=== PATIENT | female | born 1955 | race Caucasian/White ===

== ENCOUNTER 2016-12-03 22:03 | Emergency (ER) | payer MEDICAID ==
[~2016-12-03] VITALS: Ht 162.6 cm; Wt 49.9 kg
[2016-12-03 22:30] VITALS: BP 109/68
== END 2016-12-04 02:59 | disposition left against medical advice (07) ==
LOC: ER 22:06
DX: M79.89 Other specified soft tissue disorders (principal); Z53.21 Procedure and treatment not carried out due to patient leaving prior to being seen by health care provider

== ENCOUNTER 2016-12-31 09:12 | Inpatient (IN) | payer MEDICAID ==
[~2016-12-31] VITALS: Ht 167.6 cm; Wt 63.8 kg
[2016-12-31] VITALS (7 sets, daily range): BP systolic 98–129; BP diastolic 71–86
[2016-12-31] MEDS ORDERED: SODIUM CHLORIDE 0.9% 1,000 ML IVB ONE (11:02)
[2016-12-31] MEDS ORDERED: DILTIAZEM HCL 25 MG/5 ML VIAL IV ONE (11:15)
[2016-12-31] MEDS ORDERED: HYDROmorphone HCL 2 MG/ML VL IV ONE (11:15)
[2016-12-31] MEDS ORDERED: PROMETHAZINE HCL 25 MG/ML 1ML IV ONE (11:15)
[2016-12-31 11:50] LABS: Basophils # (auto) 0 uL; Basophils % (auto) 0.2 % (0.0-2.0); DEFINITIVE VIEW TRANSMISSION; Eosinophils # (auto) 0.1 uL; Eosinophils % (auto) 1.1 % (0.0-7.0); Hematocrit 37.7 % (36.0-46.0); Hemoglobin 11.7 g/dL (12.2-16.2); Lymphocytes % (auto) 19.5 % (10.0-50.0); Mean Corpuscular Hemoglobin 25.8 pg (28.0-32.0); Mean Corpuscular Volume 83.3 fL (80.0-100.0); Mean Platelet Volume 8.5 fL (7.4-10.4); Monocytes # (auto) 0.9 uL; Monocytes % (auto) 8.9 % (0.0-12.0); Neutrophils # (auto) 7.3 uL; Neutrophils % (auto) 70.3 % (37.0-80.0); Platelet Count (auto) 392 10^3/uL (140-450); Red Cell Distribution Width 18.2 % (11.6-16.0); White Blood Cell 10.4 10^3/uL (4.4-10.8)
[2016-12-31 12:11] LABS: INR 1.72 (0.9-1.15); Prothrombin Time 17.7 sec (9.37-12.3)
[2016-12-31 12:22] LABS: Lactic Acid 2.4 mmol/L (0.4-2.0)
[2016-12-31 12:26] LABS: Albumin 2.9 g/dL (3.4-5.0); BUN/Creatinine Ratio 19.1; Bilirubin, Total 0.9 mg/dL (0.2-1.0); Calcium 8.9 mg/dL (8.5-10.1); Magnesium 2.4 mg/dL (1.6-2.6); Potassium 4.5 mmol/L (3.5-5.1); Total Protein 7.1 g/dL (6.4-8.2)
[2016-12-31 12:31] LABS: REFLEX LACTIC ACID YES OR NO YES
[2016-12-31] MEDS ORDERED: MORPHINE SULF INJ 2 MG/ML SYRINGE 1ML IV PRN (14:00)
[2016-12-31] MEDS ORDERED: NITROGLYCERIN 0.4 MG SL TAB SL PRN (14:00)
[2016-12-31] MEDS ORDERED: TEMAZEPAM 15 MG CAP PO PRN (14:00)
[2016-12-31] MEDS ORDERED: ACETAMINOPHEN 500 MG TAB PO PRN (14:00)
[2016-12-31] MEDS ORDERED: CARVEDILOL 3.125 MG TAB PO ONE (14:15)
[2016-12-31] MEDS ORDERED: IOHEXOL 300 MG/ML 100ML BOTTLE IJ ONE (14:18)
[2016-12-31] MEDS ORDERED: MET50T (15:49)
[2016-12-31] MEDS ORDERED: WARF4TAB33 (15:49)
[2016-12-31] MEDS ORDERED: FURO40TA4 (15:49)
[2016-12-31] MEDS ORDERED: ALBU18 (15:49)
[2016-12-31] MEDS ORDERED: LANS30CA63 (15:49)
[2016-12-31] MEDS ORDERED: MET25T (15:49)
[2016-12-31] MEDS ORDERED: DILT30TA24 (15:49)
[2016-12-31] MEDS ORDERED: BECL80AE9 (15:49)
[2016-12-31] MEDS ORDERED: DIGO0.1262 (15:49)
[2016-12-31] MEDS ORDERED: LOR05T (15:49)
[2016-12-31] MEDS ORDERED: METH10TA6 (15:49)
[2016-12-31] MEDS ORDERED: FUR20T (15:49)
[2016-12-31] MEDS ORDERED: MORP15TA43 (15:49)
[2016-12-31] MEDS: PROMETHAZINE HCL 25 MG/ML 1ML IV PRN (16:20)
[2016-12-31] MEDS ORDERED: DILTIAZEM 125mg/125ml BAG KIT 125 ML IV SCH (17:00)
[2016-12-31] MEDS ORDERED: DIGOXIN (250MCG/ML) 2 ML AMPULE IV ONE (17:30)
[2016-12-31] MEDS ORDERED: CARVEDILOL 3.125 MG TAB PO SCH (22:00)
[2017-01-01] VITALS (13 sets, daily range): BP systolic 103–126; BP diastolic 58–76
[2017-01-01] MEDS: MORPHINE SULF INJ 2 MG/ML SYRINGE 1ML IV PRN ×3 (03:23→23:32)
[2017-01-01 05:25] LABS: Basophils # (auto) 0 uL; Basophils % (auto) 0.3 % (0.0-2.0); DEFINITIVE VIEW TRANSMISSION; Eosinophils # (auto) 0.1 uL; Hematocrit 33.2 % (36.0-46.0); Hemoglobin 10.5 g/dL (12.2-16.2); Lymphocytes # (auto) 1.6 uL; Lymphocytes % (auto) 18.5 % (10.0-50.0); Mean Corpuscular Hemoglobin 25.8 pg (28.0-32.0); Mean Corpuscular Hgb Conc. 31.5 g/dL (32.0-36.0); Mean Corpuscular Volume 81.8 fL (80.0-100.0); Mean Platelet Volume 8.1 fL (7.4-10.4); Monocytes # (auto) 0.8 uL; Monocytes % (auto) 8.9 % (0.0-12.0); Neutrophils # (auto) 6.1 uL; Neutrophils % (auto) 71.3 % (37.0-80.0); Platelet Count (auto) 344 10^3/uL (140-450); Red Cell Distribution Width 18.2 % (11.6-16.0); White Blood Cell 8.5 10^3/uL (4.4-10.8)
[2017-01-01 05:40] LABS: Partial Thromboplastin Time 30.6 sec (22.64-33.71)
[2017-01-01 05:49] LABS: Albumin 2.6 g/dL (3.4-5.0); BUN/Creatinine Ratio 28.2; Bilirubin, Total 1.3 mg/dL (0.2-1.0); Calcium 8.6 mg/dL (8.5-10.1); Potassium 4.3 mmol/L (3.5-5.1); Total Protein 6.1 g/dL (6.4-8.2)
[2017-01-01 05:57] LABS: INR 1.93 (0.9-1.15); Prothrombin Time 19.9 sec (9.37-12.3)
[2017-01-01] MEDS: DILTIAZEM HCL 180MG ER CAP PO SCH (10:00)
[2017-01-01] MEDS: METOPROLOL TARTRATE 25 MG TAB PO SCH ×2 (10:00→21:54)
[2017-01-01] MEDS: PROMETHAZINE HCL 25 MG/ML 1ML IV PRN ×2 (13:13→21:54)
[2017-01-01] MEDS: RIVAROXABAN 20 MG TAB PO SCH (18:18)
[2017-01-02] VITALS: BP 93/65
[2017-01-02 04:00] VITALS: BP 100/75
[2017-01-02 08:00] VITALS: BP 115/85
[2017-01-02] MEDS: DILTIAZEM HCL 180MG ER CAP PO SCH (10:47)
[2017-01-02] MEDS: METOPROLOL TARTRATE 25 MG TAB PO SCH ×2 (10:48→22:00)
[2017-01-02] MEDS: HYDROcodone-ACET 5/325MG TAB PO PRN (10:48)
[2017-01-02 12:00] VITALS: BP 104/76
[2017-01-02 16:00] VITALS: BP 101/67
[2017-01-02] MEDS: MORPHINE SULF INJ 2 MG/ML SYRINGE 1ML IV PRN ×2 (16:20→23:10)
[2017-01-02] MEDS: PROMETHAZINE HCL 25 MG/ML 1ML IV PRN ×2 (16:20→23:11)
[2017-01-02] MEDS: RIVAROXABAN 20 MG TAB PO SCH (18:00)
[2017-01-02 20:00] VITALS: BP 108/75
[2017-01-03] VITALS: BP 101/74
[2017-01-03 04:00] VITALS: BP 115/74
[2017-01-03 06:01] LABS: Basophils # (auto) 0 uL; DEFINITIVE VIEW TRANSMISSION; Eosinophils # (auto) 0.1 uL; Eosinophils % (auto) 1.3 % (0.0-7.0); Hematocrit 37.4 % (36.0-46.0); Hemoglobin 11.7 g/dL (12.2-16.2); Lymphocytes # (auto) 2.1 uL; Mean Corpuscular Hemoglobin 26.1 pg (28.0-32.0); Mean Corpuscular Hgb Conc. 31.3 g/dL (32.0-36.0); Mean Corpuscular Volume 83.6 fL (80.0-100.0); Mean Platelet Volume 9.2 fL (7.4-10.4); Monocytes # (auto) 1.2 uL; Monocytes % (auto) 12.2 % (0.0-12.0); Neutrophils # (auto) 6.1 uL; Neutrophils % (auto) 64.5 % (37.0-80.0); Platelet Count (auto) 353 10^3/uL (140-450); Red Cell Distribution Width 18.3 % (11.6-16.0); White Blood Cell 9.5 10^3/uL (4.4-10.8)
[2017-01-03 06:11] LABS: Albumin 2.8 g/dL (3.4-5.0); BUN/Creatinine Ratio 20.5; Calcium 8.2 mg/dL (8.5-10.1); Potassium 4.6 mmol/L (3.5-5.1)
[2017-01-03 06:14] LABS: Bilirubin, Total 0.9 mg/dL (0.2-1.0); Total Protein 6.6 g/dL (6.4-8.2)
[2017-01-03 08:00] VITALS: BP 122/78
[2017-01-03] MEDS: METOPROLOL TARTRATE 25 MG TAB PO SCH ×3 (10:04→22:49)
[2017-01-03] MEDS: DILTIAZEM HCL 180MG ER CAP PO SCH (10:04)
[2017-01-03 12:02] VITALS: BP 103/65
[2017-01-03] MEDS: PROMETHAZINE HCL 25 MG/ML 1ML IV PRN ×2 (15:11→21:57)
[2017-01-03 15:49] VITALS: BP 111/72
[2017-01-03] MEDS: RIVAROXABAN 20 MG TAB PO SCH (18:05)
[2017-01-03] MEDS: MORPHINE SULF INJ 2 MG/ML SYRINGE 1ML IV PRN ×2 (18:56→22:51)
[2017-01-03 20:00] VITALS: BP 113/73
[2017-01-04] MEDS: PROMETHAZINE HCL 25 MG/ML 1ML IV PRN (02:10)
[2017-01-04 03:39] VITALS: BP 103/76
[2017-01-04 04:00] VITALS: BP 116/77
[2017-01-04] MEDS: MORPHINE SULF INJ 2 MG/ML SYRINGE 1ML IV PRN ×2 (06:36→14:38)
[2017-01-04] MEDS: DILTIAZEM HCL 180MG ER CAP PO SCH (11:03)
[2017-01-04 11:25] VITALS: BP 116/79
[2017-01-04 12:00] VITALS: BP 86/59
[2017-01-04 16:00] VITALS: BP 131/92
[2017-01-04] MEDS: RIVAROXABAN 20 MG TAB PO SCH (18:25)
[2017-01-04] MEDS: LORazepam 0.5 MG TAB PO PRN (19:43)
[2017-01-04 20:00] VITALS: BP 126/65
[2017-01-05] VITALS (7 sets, daily range): BP systolic 91–142; BP diastolic 54–73
[2017-01-05] MEDS: MORPHINE SULF INJ 2 MG/ML SYRINGE 1ML IV PRN ×2 (09:00→14:04)
[2017-01-05] MEDS: METOPROLOL TARTRATE 25 MG TAB PO SCH ×2 (09:47→21:54)
[2017-01-05] MEDS: DILTIAZEM HCL 180MG ER CAP PO SCH (09:48)
[2017-01-05] MEDS: PROMETHAZINE HCL 25 MG/ML 1ML IV PRN (13:58)
[2017-01-05] MEDS: RIVAROXABAN 20 MG TAB PO SCH (17:41)
[2017-01-05] MEDS: HYDROcodone-ACET 5/325MG TAB PO PRN (21:54)
[2017-01-05] MEDS: LORazepam 0.5 MG TAB PO PRN (22:42)
[2017-01-06] VITALS (7 sets, daily range): BP systolic 102–126; BP diastolic 49–76
[2017-01-06] MEDS: METOPROLOL TARTRATE 25 MG TAB PO SCH ×2 (09:44→22:23)
[2017-01-06] MEDS: DILTIAZEM HCL 180MG ER CAP PO SCH (09:44)
[2017-01-06] MEDS: LORazepam 0.5 MG TAB PO PRN (10:02)
[2017-01-06] MEDS: MORPHINE SULF INJ 2 MG/ML SYRINGE 1ML IV PRN ×2 (10:58→19:50)
[2017-01-06] MEDS: RIVAROXABAN 20 MG TAB PO SCH (23:26)
[2017-01-07] VITALS (10 sets, daily range): BP systolic 99–133; BP diastolic 72–93
[2017-01-07] MEDS: MORPHINE SULF INJ 2 MG/ML SYRINGE 1ML IV PRN ×2 (03:21→10:49)
[2017-01-07 05:59] LABS: Basophils # (auto) 0.1 uL; Basophils % (auto) 0.7 % (0.0-2.0); DEFINITIVE VIEW TRANSMISSION; Eosinophils # (auto) 0.1 uL; Eosinophils % (auto) 1.2 % (0.0-7.0); Hematocrit 35.3 % (36.0-46.0); Lymphocytes # (auto) 1.7 uL; Lymphocytes % (auto) 21.4 % (10.0-50.0); Mean Corpuscular Hemoglobin 25.6 pg (28.0-32.0); Mean Corpuscular Hgb Conc. 31.1 g/dL (32.0-36.0); Mean Corpuscular Volume 82.1 fL (80.0-100.0); Mean Platelet Volume 8.4 fL (7.4-10.4); Monocytes # (auto) 0.8 uL; Monocytes % (auto) 10.4 % (0.0-12.0); Neutrophils # (auto) 5.1 uL; Neutrophils % (auto) 66.3 % (37.0-80.0); Platelet Count (auto) 312 10^3/uL (140-450); Red Cell Distribution Width 18.1 % (11.6-16.0); White Blood Cell 7.7 10^3/uL (4.4-10.8)
[2017-01-07 06:28] LABS: Albumin 2.6 g/dL (3.4-5.0); BUN/Creatinine Ratio 16.4; Bilirubin, Total 0.6 mg/dL (0.2-1.0); Calcium 8.4 mg/dL (8.5-10.1); Magnesium 2.3 mg/dL (1.6-2.6); Potassium 4.9 mmol/L (3.5-5.1); Total Protein 6.2 g/dL (6.4-8.2)
[2017-01-07] MEDS: ALBUTEROL SULF 2.5 MG/0.5ML(0.5%) NEB SOLN NEB PRN ×2 (08:55→18:41)
[2017-01-07] MEDS: DILTIAZEM HCL 180MG ER CAP PO SCH (10:48)
[2017-01-07] MEDS: METOPROLOL TARTRATE 25 MG TAB PO SCH ×3 (10:48→22:00)
[2017-01-07] MEDS: LORazepam 0.5 MG TAB PO PRN ×2 (17:19→17:20)
[2017-01-07] MEDS: RIVAROXABAN 20 MG TAB PO SCH (18:28)
[2017-01-08] MEDS: LORazepam 0.5 MG TAB PO PRN (04:43)
[2017-01-08 04:53] VITALS: BP 122/87
[2017-01-08] MEDS ORDERED: VERAPAMIL 2.5MG/ML INJ 2ML VIAL IV ONE ×2 (05:39→05:45)
[2017-01-08 08:00] VITALS: BP 125/76
[2017-01-08 08:38] VITALS: BP 116/66
[2017-01-08] MEDS: MORPHINE SULF INJ 2 MG/ML SYRINGE 1ML IV PRN (08:40)
[2017-01-08] MEDS: DILTIAZEM HCL 180MG ER CAP PO SCH (10:38)
[2017-01-08] MEDS: METOPROLOL TARTRATE 25 MG TAB PO SCH (10:39)
[2017-01-08 12:58] VITALS: BP 116/86
== END 2017-01-08 14:15 | disposition home or self-care (01) ==
LOC: EDBD 09:12 → ER 09:14 → DOU IN ICU 09:15 → TELE-WESTW 01-06 22:55
PROVIDERS: ADMIT Internal Medicine; ATTEND Internal Medicine
DX: K80.62 Calculus of gallbladder and bile duct with acute cholecystitis without obstruction (principal); J96.10 Chronic respiratory failure, unspecified whether with hypoxia or hypercapnia; D68.9 Coagulation defect, unspecified; I96 Gangrene, not elsewhere classified; I42.9 Cardiomyopathy, unspecified; R18.8 Other ascites; I48.92 Unspecified atrial flutter; I48.91 Unspecified atrial fibrillation; J44.9 Chronic obstructive pulmonary disease, unspecified; E03.9 Hypothyroidism, unspecified; E05.90 Thyrotoxicosis, unspecified without thyrotoxic crisis or storm; F41.9 Anxiety disorder, unspecified; K76.9 Liver disease, unspecified; F17.210 Nicotine dependence, cigarettes, uncomplicated; Z90.89 Acquired absence of other organs; Z84.89 Family history of other specified conditions; I51.7 Cardiomegaly; F19.10 Other psychoactive substance abuse, uncomplicated; F10.10 Alcohol abuse, uncomplicated; I50.42 Chronic combined systolic (congestive) and diastolic (congestive) heart failure; I73.9 Peripheral vascular disease, unspecified; Z71.89 Other specified counseling; Y90.9 Presence of alcohol in blood, level not specified; Z99.81 Dependence on supplemental oxygen
CPT/HCPCS: 36415; 71020; 73620; 74176; 74178; 80053; 80061; 82150; 82270; 82378; 82550; 83605; 83690; 83735; 83880; 84439; 84443; 84481; 84484; 85025; 85379; 85610; 85652; 85730; 86141; 87081; 93005; 93306; 93926; 94640; 96361; 96374; 96375

== ENCOUNTER 2023-11-30 09:39 | Inpatient (IN) | payer OTHER, MEDICAID ==
[2023-11-30] VITALS (11 sets, daily range): BP systolic 110–155; BP diastolic 45–67; PULSE 75–113; RESP 15–36; TEMP 97.5–99.1; O2SAT 94–100
[~2023-11-30] VITALS: Ht 165.1 cm; Wt 48.9 kg
[~2023-11-30 09:39] MED LIST: ALBU18; BECL80AE9; DIGO0.1262; DILT30TA; FUR20T; FURO40TA4; LANS30CA57; LORA-1121; MET25T; MET50T; METH-552; MORP1TAB12; WARF-112
[2023-11-30 10:18] LABS: Basophils # (auto) 0 10 ^3/uL (0-0.2); Basophils % (auto) 0.1 % (0.0-2.0); Eosinophils # (auto) 0.1 10 ^3/uL (0-0.8); Eosinophils % (auto) 1.3 % (0.0-7.0); Hematocrit 35.1 % (36.0-46.0); Hemoglobin 11.3 g/dL (12.2-16.2); Lymphocytes # (auto) 0.8 10 ^3/uL (0.4-5.4); Lymphocytes % (auto) 8.6 % (10.0-50.0); Mean Corpuscular Hgb Conc. 32.2 g/dL (32.0-36.0); Monocytes # (auto) 0.9 10 ^3/uL (0-1.3); Neutrophils # (auto) 7.4 10 ^3/uL (1.6-8.6); Nucleated Red Blood Cells % 0.1 %; Red Blood Cells 4.04 10^6/uL (4.0-5.20); Red Cell Distribution Width 13.1 % (11.8-14.3); White Blood Cell 9.3 10^3/uL (4.4-10.8)
[2023-11-30 10:26] LABS: Chloride 102 mmol/L (98-107); Potassium 4.9 mmol/L (3.5-5.1); Sodium 137 mmol/L (136-145)
[2023-11-30 10:27] LABS: Anion Gap 1 (5-15); Calcium 9.3 mg/dL (8.5-10.1); Carbon Dioxide 34 mmol/L (20-30)
[2023-11-30 10:32] LABS: Blood Urea Nitrogen 14 mg/dL (9-23); Glucose 116 mg/dL (74-106)
[2023-11-30 11:09] LABS: Rapid Influenza A Negative (Negative); Rapid Influenza B Negative (Negative)
[2023-11-30 11:10] LABS: COVID19 ANTIGEN SOFIA FIA NEGATIVE (NEGATIVE)
[2023-11-30] MEDS: LORazepam 2MG/ML-1ML VIAL IV ONE (11:19)
[2023-11-30] MEDS ORDERED: METH4PAK PO (12:02)
[2023-11-30] MEDS ORDERED: AZIT1POW PO (12:02)
[2023-11-30] MEDS: IPRATROPIUM BROM 0.5 MG/2.5ML INH SOL HHN ONE (12:30)
[2023-11-30] MEDS: ALBUTEROL SULF 2.5 MG/0.5ML(0.5%) NEB SOLN HHN ONE (12:30)
[2023-11-30] MEDS ORDERED: ACETAMINOPHEN 325 MG TAB PO PRN (13:00)
[2023-11-30] MEDS ORDERED: DOCUSATE SOD 100 MG CAP PO PRN (13:00)
[2023-11-30] MEDS ORDERED: MORPHINE SULFATE INJ 2 MG/ml SYRG IV PRN (13:00)
[2023-11-30] MEDS ORDERED: NITROGLYCERIN 0.4 MG SL TAB SL PRN (13:00)
[2023-11-30] MEDS ORDERED: ONDANSETRON HCL 4 MG/2 ML VIAL IV PRN (13:00)
[2023-11-30] MEDS: IOHEXOL 350 MG/ML 100ML IJ ONE (13:16)
[2023-11-30] MEDS: IPRATROPIUM BROM 0.5 MG/2.5ML INH SOL ONE (13:37)
[2023-11-30] MEDS: ALBUTEROL SULF 2.5 MG/0.5ML(0.5%) NEB SOLN ONE (13:38)
[2023-11-30 13:46] LABS: Base Excess 4.7 mmol/L (-2.0-2.0)
[2023-11-30] MEDS: METOPROLOL TARTRATE 25 MG TAB PO ONE (13:51)
[2023-11-30] MEDS: SODIUM CHLORIDE 0.9% 1,000 ML IV ONE (13:51)
[2023-11-30] MEDS: methylPREDNISolone SOD SUCC 125 MG/2 ML VL IV ONE (13:51)
[2023-11-30] MEDS: methylPREDNISolone SOD SUCC 40 MG/ML VL IV SCH (13:57)
[2023-11-30 14:54] LABS: Urine Epithelial Cast None Seen /hpf (<5)
[2023-11-30 15:07] LABS: Urine Bacteria FEW /hpf (None Seen); Urine Blood Negative /uL (Negative); Urine Clarity Clear (Clear); Urine Color Colorless (Yellow); Urine Protein, UAD TRACE (Negative); Urine Urobilinogen Normal (Negative); Urine WBC <1 /hpf (0 - 5)
[2023-11-30 15:08] LABS: Urine Specific Gravity > 1.050 (1.001-1.035)
[2023-11-30 15:22] LABS: Amphetamine Screen, Urine Pos (NEGATIVE); Barbiturate Scree,Urine Neg (NEGATIVE); Benzodiazephine Screen, Urine Neg (NEGATIVE); Cocaine Screen, Urine Neg (NEGATIVE); Opiate Scree,Urine Neg (NEGATIVE); Phencyclidine Screen, Urine Neg (NEGATIVE)
[2023-11-30 15:23] LABS: Cannabinoid Screen, Urine Neg (NEGATIVE)
[2023-11-30] MEDS: LEVALBUTEROL HCL 1.25 MG/3 ML NEB NEB SCH (19:06)
[2023-11-30] MEDS: IPRATROPIUM BROM 0.5 MG/2.5ML INH SOL NEB SCH (19:06)
[2023-11-30] MEDS ORDERED: HEPARIN DRIP/D5W 100UNITS/ML 250 ML IV SCH (20:15)
[2023-11-30 21:10] LABS: Basophils # (auto) 0 10 ^3/uL (0-0.2); Basophils % (auto) 0.1 % (0.0-2.0); Eosinophils # (auto) 0 10 ^3/uL (0-0.8); Hematocrit 34.5 % (36.0-46.0); Lymphocytes # (auto) 0.3 10 ^3/uL (0.4-5.4); Lymphocytes % (auto) 5.5 % (10.0-50.0); Mean Corpuscular Hgb Conc. 32.1 g/dL (32.0-36.0); Mean Corpuscular Volume 87.5 fL (80.0-100.0); Monocytes # (auto) 0.1 10 ^3/uL (0-1.3); Monocytes % (auto) 1.4 % (0.0-12.0); Neutrophils # (auto) 4.7 10 ^3/uL (1.6-8.6); Nucleated Red Blood Cells % 0.2 %; Red Blood Cells 3.94 10^6/uL (4.0-5.20)
[2023-11-30 21:26] LABS: INR 0.98 (0.9-1.15); Partial Thromboplastin Time 29.9 SEC (24.5-34.5); Prothrombin Time 10.3 sec (9.3-11.8)
[2023-11-30] MEDS: METOPROLOL TARTRATE 25 MG TAB PO SCH (21:56)
[2023-11-30] MEDS ORDERED: LORazepam 0.5 MG TAB PO SCH (22:00)
[2023-11-30] MEDS: HEPARIN SODIUM (PORCINE) 5000 UNITS/ML 1ML VIAL IV ONE (22:13)
[2023-11-30] MEDS: HEPARIN DRIP/D5W 100UNITS/ML 250 ML IV SCH (22:19)
[2023-12-01] VITALS (22 sets, daily range): BP systolic 101–146; BP diastolic 46–72; PULSE 75–114; RESP 20–35; TEMP 97.5–98.6; O2SAT 86–100
[2023-12-01 05:56] LABS: Basophils # (auto) 0 10 ^3/uL (0-0.2); Eosinophils # (auto) 0 10 ^3/uL (0-0.8); Hematocrit 35.5 % (36.0-46.0); Hemoglobin 11.4 g/dL (12.2-16.2); Lymphocytes # (auto) 0.3 10 ^3/uL (0.4-5.4); Lymphocytes % (auto) 7.6 % (10.0-50.0); Mean Corpuscular Hemoglobin 28.2 pg (28.0-32.0); Monocytes # (auto) 0.1 10 ^3/uL (0-1.3); Monocytes % (auto) 1.2 % (0.0-12.0); Neutrophils # (auto) 4.1 10 ^3/uL (1.6-8.6); Neutrophils % (auto) 91.2 % (37.0-80.0); Nucleated Red Blood Cells % 0.1 %; Red Blood Cells 4.03 10^6/uL (4.0-5.20); Red Cell Distribution Width 13.1 % (11.8-14.3); White Blood Cell 4.5 10^3/uL (4.4-10.8)
[2023-12-01 06:15] LABS: Alanine Aminotransferase 30 U/L (7-40); Albumin 3.9 g/dL (3.2-4.8); Alkaline Phosphatase 113 U/L (46-116); Anion Gap 5 (5-15); Aspartate Aminotransferase 32 U/L (13-40); BUN/Creatinine Ratio 20.3 (10.0-20.0); Blood Urea Nitrogen 12 mg/dL (9-23); Calcium 9.7 mg/dL (8.5-10.1); Carbon Dioxide 33 mmol/L (20-30); Chloride 101 mmol/L (98-107); Glucose 198 mg/dL (74-106); Potassium 4.4 mmol/L (3.5-5.1); Sodium 139 mmol/L (136-145)
[2023-12-01 06:16] LABS: Bilirubin, Total 0.5 mg/dL (0.2-1.0); Total Protein 6.8 g/dL (5.7-8.2)
[2023-12-01 06:19] LABS: INR 1.02 (0.9-1.15); Prothrombin Time 10.7 sec (9.3-11.8)
[2023-12-01 06:22] LABS: Partial Thromboplastin Time 96.4 SEC (24.5-34.5)
[2023-12-01] MEDS: LEVALBUTEROL HCL 1.25 MG/3 ML NEB NEB SCH (06:30)
[2023-12-01] MEDS: HEPARIN DRIP/D5W 100UNITS/ML 250 ML IV SCH ×3 (06:48→21:50)
[2023-12-01] MEDS: FUROSEMIDE 20 MG TAB PO SCH (09:55)
[2023-12-01] MEDS: DIGOXIN 0.125 MG TAB PO SCH (09:55)
[2023-12-01] MEDS: PANTOPRAZOLE 40 MG/10 ML VIAL INJ IV SCH (09:55)
[2023-12-01] MEDS ORDERED: ENOXAPARIN SOD 40 MG/0.4 ML SYRINGE SC SCH (10:00)
[2023-12-01 14:09] LABS: Prothrombin Time 10.5 sec (9.3-11.8)
[2023-12-01] MEDS: guaiFENesin-CODEINE Liq 5 ML UD PO PRN (15:06)
[2023-12-01] MEDS: LORazepam 0.5 MG TAB PO PRN (19:07)
[2023-12-01 21:04] LABS: Prothrombin Time 10.5 sec (9.3-11.8)
[2023-12-02] VITALS (16 sets, daily range): BP systolic 119–152; BP diastolic 64–85; PULSE 70–114; RESP 13–28; TEMP 96.7–98.7; O2SAT 86–100
[2023-12-02 04:00] LABS: Basophils # (auto) 0 10 ^3/uL (0-0.2); Basophils % (auto) 0.1 % (0.0-2.0); Eosinophils # (auto) 0 10 ^3/uL (0-0.8); Hematocrit 34.3 % (36.0-46.0); Hemoglobin 11.1 g/dL (12.2-16.2); Lymphocytes # (auto) 0.5 10 ^3/uL (0.4-5.4); Lymphocytes % (auto) 5.8 % (10.0-50.0); Mean Corpuscular Hemoglobin 28.2 pg (28.0-32.0); Mean Corpuscular Hgb Conc. 32.3 g/dL (32.0-36.0); Mean Corpuscular Volume 87.4 fL (80.0-100.0); Monocytes # (auto) 0.6 10 ^3/uL (0-1.3); Monocytes % (auto) 6.8 % (0.0-12.0); Neutrophils # (auto) 7.6 10 ^3/uL (1.6-8.6); Neutrophils % (auto) 87.3 % (37.0-80.0); Red Blood Cells 3.92 10^6/uL (4.0-5.20); Red Cell Distribution Width 12.7 % (11.8-14.3); White Blood Cell 8.7 10^3/uL (4.4-10.8)
[2023-12-02 10:46] LABS: INR 1.04 (0.9-1.15); Prothrombin Time 10.9 sec (9.3-11.8)
[2023-12-02] MEDS: HEPARIN DRIP/D5W 100UNITS/ML 250 ML IV SCH ×2 (11:25→19:13)
[2023-12-02] MEDS: LORazepam 0.5 MG TAB PO SCH (14:00)
[2023-12-02 18:14] LABS: INR 1.02 (0.9-1.15); Partial Thromboplastin Time 41.5 SEC (24.5-34.5); Prothrombin Time 10.7 sec (9.3-11.8)
[2023-12-03] VITALS (15 sets, daily range): BP systolic 113–149; BP diastolic 57–83; PULSE 78–113; RESP 16–22; TEMP 97–98.1; O2SAT 90–99
[2023-12-03 01:44] LABS: INR 1.04 (0.9-1.15); Prothrombin Time 10.9 sec (9.3-11.8)
[2023-12-03 01:49] LABS: Partial Thromboplastin Time 73.5 SEC (24.5-34.5)
[2023-12-03 06:28] LABS: Basophils # (auto) 0 10 ^3/uL (0-0.2); Basophils % (auto) 0.1 % (0.0-2.0); Eosinophils # (auto) 0 10 ^3/uL (0-0.8); Hematocrit 36.2 % (36.0-46.0); Hemoglobin 11.7 g/dL (12.2-16.2); Lymphocytes # (auto) 0.4 10 ^3/uL (0.4-5.4); Lymphocytes % (auto) 7.6 % (10.0-50.0); Mean Corpuscular Hemoglobin 28.5 pg (28.0-32.0); Mean Corpuscular Hgb Conc. 32.4 g/dL (32.0-36.0); Mean Corpuscular Volume 87.9 fL (80.0-100.0); Monocytes # (auto) 0.1 10 ^3/uL (0-1.3); Monocytes % (auto) 1.9 % (0.0-12.0); Neutrophils # (auto) 5.2 10 ^3/uL (1.6-8.6); Neutrophils % (auto) 90.4 % (37.0-80.0); Red Blood Cells 4.12 10^6/uL (4.0-5.20); Red Cell Distribution Width 13.1 % (11.8-14.3); White Blood Cell 5.7 10^3/uL (4.4-10.8)
[2023-12-03 06:33] LABS: Anion Gap 1 (5-15); Carbon Dioxide 38 mmol/L (20-30); Chloride 101 mmol/L (98-107); Potassium 4.6 mmol/L (3.5-5.1); Sodium 140 mmol/L (136-145)
[2023-12-03 06:34] LABS: Calcium 9.1 mg/dL (8.7-10.4)
[2023-12-03 06:39] LABS: BUN/Creatinine Ratio 33.9 (10.0-20.0); Blood Urea Nitrogen 19 mg/dL (9-23); Glucose 149 mg/dL (74-106)
[2023-12-03 08:18] LABS: INR 1.03 (0.9-1.15); Prothrombin Time 10.8 sec (9.3-11.8)
[2023-12-03 08:30] LABS: Partial Thromboplastin Time 103.4 SEC (24.5-34.5)
[2023-12-03] MEDS: HEPARIN DRIP/D5W 100UNITS/ML 250 ML IV SCH (09:43)
[2023-12-03 23:21] LABS: INR 1.03 (0.9-1.15); Partial Thromboplastin Time 47.6 SEC (24.5-34.5); Prothrombin Time 10.8 sec (9.3-11.8)
[2023-12-04] VITALS (14 sets, daily range): BP systolic 120–142; BP diastolic 60–83; PULSE 67–120; RESP 16–20; TEMP 97.6–98.3; O2SAT 90–98
[2023-12-04] MEDS: HEPARIN DRIP/D5W 100UNITS/ML 250 ML IV SCH ×2 (05:14→14:49)
[2023-12-04 06:23] LABS: Basophils # (auto) 0 10 ^3/uL (0-0.2); Basophils % (auto) 0.2 % (0.0-2.0); Eosinophils # (auto) 0 10 ^3/uL (0-0.8); Hematocrit 37.7 % (36.0-46.0); Hemoglobin 12.1 g/dL (12.2-16.2); Lymphocytes # (auto) 0.5 10 ^3/uL (0.4-5.4); Lymphocytes % (auto) 9.4 % (10.0-50.0); Mean Corpuscular Hemoglobin 28.1 pg (28.0-32.0); Mean Corpuscular Hgb Conc. 32.1 g/dL (32.0-36.0); Mean Corpuscular Volume 87.6 fL (80.0-100.0); Monocytes # (auto) 0.2 10 ^3/uL (0-1.3); Monocytes % (auto) 3.8 % (0.0-12.0); Neutrophils # (auto) 4.9 10 ^3/uL (1.6-8.6); Neutrophils % (auto) 86.6 % (37.0-80.0); Nucleated Red Blood Cells % 0.1 %; White Blood Cell 5.6 10^3/uL (4.4-10.8)
[2023-12-04 06:37] LABS: Chloride 101 mmol/L (98-107); Potassium 4.3 mmol/L (3.5-5.1); Sodium 140 mmol/L (136-145)
[2023-12-04 06:38] LABS: Anion Gap 0 (5-15); Calcium 9.6 mg/dL (8.5-10.1); Carbon Dioxide 39 mmol/L (20-30)
[2023-12-04 06:43] LABS: BUN/Creatinine Ratio 29.8 (10.0-20.0); Blood Urea Nitrogen 17 mg/dL (9-23); Glucose 138 mg/dL (74-106)
[2023-12-04 06:47] LABS: INR 1.04 (0.9-1.15); Prothrombin Time 10.9 sec (9.3-11.8)
[2023-12-04 06:49] LABS: Partial Thromboplastin Time 74.8 SEC (24.5-34.5)
[2023-12-05] VITALS (12 sets, daily range): BP systolic 132–159; BP diastolic 56–92; PULSE 89–121; RESP 16–22; TEMP 97.6–97.9; O2SAT 3–100
[2023-12-05] MEDS: HEPARIN DRIP/D5W 100UNITS/ML 250 ML IV SCH ×2 (00:44→08:53)
[2023-12-05 06:36] LABS: Basophils # (auto) 0 10 ^3/uL (0-0.2); Basophils % (auto) 0.1 % (0.0-2.0); Eosinophils # (auto) 0 10 ^3/uL (0-0.8); Hematocrit 36.5 % (36.0-46.0); Hemoglobin 11.8 g/dL (12.2-16.2); Lymphocytes % (auto) 10.9 % (10.0-50.0); Mean Corpuscular Hgb Conc. 32.3 g/dL (32.0-36.0); Mean Corpuscular Volume 86.9 fL (80.0-100.0); Monocytes # (auto) 0.7 10 ^3/uL (0-1.3); Monocytes % (auto) 7.3 % (0.0-12.0); Neutrophils # (auto) 7.7 10 ^3/uL (1.6-8.6); Neutrophils % (auto) 81.7 % (37.0-80.0); Red Cell Distribution Width 12.9 % (11.8-14.3); White Blood Cell 9.4 10^3/uL (4.4-10.8)
[2023-12-05 06:50] LABS: Anion Gap 4 (5-15); Carbon Dioxide 36 mmol/L (20-30); Chloride 101 mmol/L (98-107); Potassium 3.8 mmol/L (3.5-5.1); Sodium 141 mmol/L (136-145)
[2023-12-05 06:52] LABS: Calcium 9.3 mg/dL (8.5-10.1)
[2023-12-05 06:56] LABS: Glucose 150 mg/dL (74-106)
[2023-12-05 06:57] LABS: BUN/Creatinine Ratio 29.7 (10.0-20.0); Blood Urea Nitrogen 22 mg/dL (9-23)
[2023-12-05 15:57] LABS: INR 1.05 (0.9-1.15)
[2023-12-05 16:19] LABS: Partial Thromboplastin Time 74.3 SEC (24.5-34.5)
[2023-12-05 17:47] LABS: Base Excess 10.6 mmol/L (-2.0-2.0)
[2023-12-05 21:58] LABS: INR 1.06 (0.9-1.15); Partial Thromboplastin Time 65.1 SEC (24.5-34.5); Prothrombin Time 11.1 sec (9.3-11.8)
[2023-12-06] VITALS (12 sets, daily range): BP systolic 145–162; BP diastolic 79–88; PULSE 70–137; RESP 14–22; TEMP 98–98.9; O2SAT 92–100
[2023-12-06 03:08] LABS: Basophils # (auto) 0 10 ^3/uL (0-0.2); Basophils % (auto) 0.1 % (0.0-2.0); Eosinophils # (auto) 0 10 ^3/uL (0-0.8); Hemoglobin 11.4 g/dL (12.2-16.2); Lymphocytes # (auto) 0.4 10 ^3/uL (0.4-5.4); Lymphocytes % (auto) 3.6 % (10.0-50.0); Mean Corpuscular Hemoglobin 27.6 pg (28.0-32.0); Mean Corpuscular Hgb Conc. 31.6 g/dL (32.0-36.0); Mean Corpuscular Volume 87.3 fL (80.0-100.0); Monocytes # (auto) 0.5 10 ^3/uL (0-1.3); Monocytes % (auto) 4.4 % (0.0-12.0); Neutrophils # (auto) 9.4 10 ^3/uL (1.6-8.6); Neutrophils % (auto) 91.9 % (37.0-80.0); Nucleated Red Blood Cells % 0.1 %; Red Blood Cells 4.12 10^6/uL (4.0-5.20); Red Cell Distribution Width 13.2 % (11.8-14.3); White Blood Cell 10.2 10^3/uL (4.4-10.8)
[2023-12-06 03:10] LABS: Chloride 101 mmol/L (98-107); Potassium 4.2 mmol/L (3.5-5.1); Sodium 139 mmol/L (136-145)
[2023-12-06 03:11] LABS: Anion Gap 2 (5-15); Carbon Dioxide 36 mmol/L (20-30)
[2023-12-06 03:12] LABS: Calcium 8.6 mg/dL (8.7-10.4)
[2023-12-06 03:16] LABS: BUN/Creatinine Ratio 25.8 (10.0-20.0); Blood Urea Nitrogen 16 mg/dL (9-23); Glucose 140 mg/dL (74-106)
[2023-12-06 03:22] LABS: INR 1.04 (0.9-1.15); Prothrombin Time 10.9 sec (9.3-11.8)
[2023-12-06 03:25] LABS: Partial Thromboplastin Time 76.4 SEC (24.5-34.5)
[2023-12-06] MEDS: HEPARIN DRIP/D5W 100UNITS/ML 250 ML IV SCH ×2 (04:30→19:00)
[2023-12-06] MEDS: LORazepam 2MG/ML-1ML VIAL ONE (05:24)
[2023-12-06] MEDS: LORazepam 2MG/ML-1ML VIAL IV ONE (06:02)
[2023-12-06 10:19] LABS: INR 1.04 (0.9-1.15); Partial Thromboplastin Time 50.6 SEC (24.5-34.5); Prothrombin Time 10.9 sec (9.3-11.8)
[2023-12-06 18:47] LABS: INR 1.04 (0.9-1.15); Partial Thromboplastin Time 37.8 SEC (24.5-34.5); Prothrombin Time 10.9 sec (9.3-11.8)
[2023-12-06] MEDS ORDERED: ACETYLCYSTEINE 10 %(100MG/ML) SOL 4ML NEB SCH (22:00)
[2023-12-07] VITALS (46 sets, daily range): BP systolic 73–161; BP diastolic 44–109; PULSE 64–160; RESP 16–30; TEMP 98.8–100.8; O2SAT 92–100
[2023-12-07] MEDS: ACETYLCYSTEINE 10 %(100MG/ML) SOL 4ML NEB SCH (00:48)
[2023-12-07 01:46] LABS: INR 1.07 (0.9-1.15); Prothrombin Time 11.2 sec (9.3-11.8)
[2023-12-07 06:20] LABS: Basophils # (auto) 0 10 ^3/uL (0-0.2); Basophils % (auto) 0.2 % (0.0-2.0); Eosinophils # (auto) 0 10 ^3/uL (0-0.8); Hematocrit 41.6 % (36.0-46.0); Hemoglobin 13.2 g/dL (12.2-16.2); Lymphocytes # (auto) 0.8 10 ^3/uL (0.4-5.4); Mean Corpuscular Hemoglobin 28.3 pg (28.0-32.0); Mean Corpuscular Hgb Conc. 31.8 g/dL (32.0-36.0); Monocytes # (auto) 0.6 10 ^3/uL (0-1.3); Monocytes % (auto) 6.5 % (0.0-12.0); Neutrophils % (auto) 85.3 % (37.0-80.0); Nucleated Red Blood Cells % 0.3 %; Red Blood Cells 4.67 10^6/uL (4.0-5.20); Red Cell Distribution Width 13.4 % (11.8-14.3); White Blood Cell 9.4 10^3/uL (4.4-10.8)
[2023-12-07 06:36] LABS: Chloride 96 mmol/L (98-107); Potassium 4.8 mmol/L (3.5-5.1)
[2023-12-07 06:37] LABS: Anion Gap 4 (5-15); Calcium 8.7 mg/dL (8.7-10.4); Carbon Dioxide 31 mmol/L (20-30)
[2023-12-07 06:42] LABS: BUN/Creatinine Ratio 16.7 (10.0-20.0); Blood Urea Nitrogen 10 mg/dL (9-23); Glucose 92 mg/dL (74-106)
[2023-12-07 06:48] LABS: Sodium 131 mmol/L (136-145)
[2023-12-07 08:17] LABS: INR 1.1 (0.9-1.15); Partial Thromboplastin Time 65.1 SEC (24.5-34.5); Prothrombin Time 11.5 sec (9.3-11.8)
[2023-12-07] MEDS ORDERED: hydrALAZINE HCL 20 MG/ML VL IV PRN (11:30)
[2023-12-07] MEDS: FUROSEMIDE 40 MG/4 ML VIAL IV ONE (11:58)
[2023-12-07 12:47] LABS: Base Excess 3.4 mmol/L (-2.0-2.0)
[2023-12-07] MEDS: ETOMIDATE (2MG/ML) 20ML VIAL IV ONE (14:10)
[2023-12-07] MEDS: ROCURONIUM 10MG/ML 10ML VIAL IV ONE (14:10)
[2023-12-07] MEDS: MIDAZOLAM DRIP 50 mg/50mL 50 ML IV SCH (14:15)
[2023-12-07] MEDS: NOREPINEPHRINE 8 MG/250ML KIT 250 ML IV SCH (14:15)
[2023-12-07 14:19] LABS: Base Excess 4.7 mmol/L (-2.0-2.0)
[2023-12-07] MEDS: NOREPINEPHRINE 8 MG/250ML KIT 250 ML IV ONE (14:35)
[2023-12-07 15:09] LABS: INR 1.06 (0.9-1.15); Prothrombin Time 11.1 sec (9.3-11.8)
[2023-12-07 15:34] LABS: Partial Thromboplastin Time 97.4 SEC (24.5-34.5)
[2023-12-07] MEDS: fentaNYL Drip 2500mCg/250mlNS 250 ML IV SCH (16:30)
[2023-12-07] MEDS ORDERED: HEPARIN DRIP/D5W 100UNITS/ML 250 ML IV SCH (16:30)
[2023-12-07] MEDS: PROPOFOL 100 ML IV SCH (16:31)
[2023-12-07 16:34] LABS: Base Excess 4.4 mmol/L (-2.0-2.0)
[2023-12-07] MEDS: HEPARIN DRIP/D5W 100UNITS/ML 250 ML IV SCH (16:39)
[2023-12-07] MEDS: FUROSEMIDE 40 MG/4 ML VIAL IV SCH (18:18)
[2023-12-07 23:07] LABS: INR 1.04 (0.9-1.15); Partial Thromboplastin Time 48.1 SEC (24.5-34.5); Prothrombin Time 10.9 sec (9.3-11.8)
[2023-12-08] VITALS (91 sets, daily range): BP systolic 89–154; BP diastolic 28–87; PULSE 64–133; RESP 20–21; TEMP 97.9–100; O2SAT 93–100
[2023-12-08 04:08] LABS: Basophils # (auto) 0 10 ^3/uL (0-0.2); Basophils % (auto) 0.2 % (0.0-2.0); Eosinophils # (auto) 0 10 ^3/uL (0-0.8); Hematocrit 39.2 % (36.0-46.0); Hemoglobin 12.3 g/dL (12.2-16.2); Lymphocytes # (auto) 0.4 10 ^3/uL (0.4-5.4); Lymphocytes % (auto) 3.3 % (10.0-50.0); Mean Corpuscular Hemoglobin 27.6 pg (28.0-32.0); Mean Corpuscular Hgb Conc. 31.4 g/dL (32.0-36.0); Monocytes # (auto) 0.5 10 ^3/uL (0-1.3); Monocytes % (auto) 3.8 % (0.0-12.0); Neutrophils # (auto) 11.7 10 ^3/uL (1.6-8.6); Neutrophils % (auto) 92.7 % (37.0-80.0); Red Blood Cells 4.45 10^6/uL (4.0-5.20); Red Cell Distribution Width 13.2 % (11.8-14.3); White Blood Cell 12.6 10^3/uL (4.4-10.8)
[2023-12-08 04:23] LABS: Alanine Aminotransferase 109 U/L (7-40); Alkaline Phosphatase 89 U/L (46-116); Anion Gap 10 (5-15); BUN/Creatinine Ratio 26.1 (10.0-20.0); Calcium 8.2 mg/dL (8.7-10.4); Carbon Dioxide 28 mmol/L (20-30); Chloride 95 mmol/L (98-107); Glucose 209 mg/dL (74-106); Sodium 133 mmol/L (136-145)
[2023-12-08 04:24] LABS: Albumin 3.4 g/dL (3.2-4.8); Aspartate Aminotransferase 88 U/L (13-40); Bilirubin, Total 0.5 mg/dL (0.2-1.0); Total Protein 6.2 g/dL (5.7-8.2)
[2023-12-08 04:35] LABS: Blood Urea Nitrogen 36 mg/dL (9-23)
[2023-12-08 05:57] LABS: INR 1.06 (0.9-1.15); Prothrombin Time 11.1 sec (9.3-11.8)
[2023-12-08 07:38] LABS: Base Excess 2.3 mmol/L (-2.0-2.0)
[2023-12-08] MEDS: LOSARTAN POTASSIUM 25 MG TAB PO SCH (09:34)
[2023-12-08] MEDS ORDERED: SODIUM BICARBONATE 50ML VIAL 50 ML in D5W 5% 1,000 ML IV SCH (10:15)
[2023-12-08 11:28] LABS: INR 1.09 (0.9-1.15); Prothrombin Time 11.4 sec (9.3-11.8)
[2023-12-08 12:06] LABS: Partial Thromboplastin Time 70.9 SEC (24.5-34.5)
[2023-12-08] MEDS ORDERED: VASOPRESSIN 20 UNITS in SODIUM CHL 0.9% 99 ML IV SCH (14:45)
[2023-12-08 16:03] LABS: Base Excess 3.5 mmol/L (-2.0-2.0)
[2023-12-08 17:30] LABS: INR 1.04 (0.9-1.15); Prothrombin Time 10.9 sec (9.3-11.8)
[2023-12-08 17:47] LABS: Partial Thromboplastin Time 75.7 SEC (24.5-34.5)
[2023-12-08] MEDS ORDERED: HEPARIN DRIP/D5W 100UNITS/ML 250 ML IV SCH (18:15)
[2023-12-08] MEDS: methylPREDNISolone SOD SUCC 40 MG/ML VL IV SCH (20:51)
[2023-12-09] VITALS (106 sets, daily range): BP systolic 75–178; BP diastolic 27–83; PULSE 64–112; RESP 19–21; TEMP 97.3–99.7; O2SAT 93–100
[2023-12-09 03:52] LABS: Basophils # (auto) 0 10 ^3/uL (0-0.2); Basophils % (auto) 0.1 % (0.0-2.0); Eosinophils # (auto) 0 10 ^3/uL (0-0.8); Hematocrit 35.1 % (36.0-46.0); Hemoglobin 11.3 g/dL (12.2-16.2); Lymphocytes # (auto) 0.3 10 ^3/uL (0.4-5.4); Lymphocytes % (auto) 1.5 % (10.0-50.0); Mean Corpuscular Hemoglobin 27.9 pg (28.0-32.0); Mean Corpuscular Hgb Conc. 32.3 g/dL (32.0-36.0); Mean Corpuscular Volume 86.5 fL (80.0-100.0); Monocytes % (auto) 5.6 % (0.0-12.0); Neutrophils # (auto) 17.4 10 ^3/uL (1.6-8.6); Neutrophils % (auto) 92.8 % (37.0-80.0); Red Blood Cells 4.05 10^6/uL (4.0-5.20); Red Cell Distribution Width 13.4 % (11.8-14.3); White Blood Cell 18.8 10^3/uL (4.4-10.8)
[2023-12-09 04:08] LABS: INR 1.04 (0.9-1.15); Partial Thromboplastin Time 68.9 SEC (24.5-34.5); Prothrombin Time 10.9 sec (9.3-11.8)
[2023-12-09 04:10] LABS: Alanine Aminotransferase 74 U/L (7-40); Albumin 3.2 g/dL (3.2-4.8); Alkaline Phosphatase 77 U/L (46-116); Anion Gap 5 (5-15); Aspartate Aminotransferase 34 U/L (13-40); BUN/Creatinine Ratio 33.3 (10.0-20.0); Blood Urea Nitrogen 44 mg/dL (9-23); Calcium 8.3 mg/dL (8.7-10.4); Carbon Dioxide 31 mmol/L (20-30); Chloride 99 mmol/L (98-107); Glucose 164 mg/dL (74-106); Potassium 4.2 mmol/L (3.5-5.1); Sodium 135 mmol/L (136-145)
[2023-12-09 04:11] LABS: Bilirubin, Total 0.5 mg/dL (0.2-1.0); Total Protein 5.8 g/dL (5.7-8.2)
[2023-12-09 07:24] LABS: Base Excess 3.4 mmol/L (-2.0-2.0)
[2023-12-09] MEDS ORDERED: VANCOMYCIN PER PHARMACY 0 MG IV SCH (09:45)
[2023-12-09] MEDS: VANCOMYCIN 1GM/200ML 200 ML IV ONE (11:31)
[2023-12-09] MEDS: PIPERACILLIN-TAZOB 3.375GM 100 ML IV SCH (14:34)
[2023-12-10] VITALS (108 sets, daily range): BP systolic 81–156; BP diastolic 33–80; PULSE 61–130; RESP 12–35; TEMP 97.7–99.3; O2SAT 79–100
[2023-12-10] MEDS: HEPARIN DRIP/D5W 100UNITS/ML 250 ML IV SCH (03:32)
[2023-12-10 05:49] LABS: INR 0.98 (0.9-1.15); Prothrombin Time 10.3 sec (9.3-11.8)
[2023-12-10 06:15] LABS: Partial Thromboplastin Time 72.6 SEC (24.5-34.5)
[2023-12-10 06:35] LABS: Base Excess 3.3 mmol/L (-2.0-2.0)
[2023-12-10] MEDS: DexmedeTOMIDine 200 MCG in D5W 5% 48 ML IV SCH (08:25)
[2023-12-10] MEDS: VANCOMYCIN 500 MG in D5W 5% 100 ML IV SCH (10:45)
[2023-12-11] VITALS (104 sets, daily range): BP systolic 47–161; BP diastolic 13–81; PULSE 69–134; RESP 17–52; TEMP 96.1–99.7; O2SAT 41–100
[2023-12-11] MEDS: HYDROcodone-ACET 5/325MG TAB PO ONE (02:38)
[2023-12-11 04:33] LABS: Chloride 99 mmol/L (98-107); Potassium 4.3 mmol/L (3.5-5.1); Sodium 134 mmol/L (136-145)
[2023-12-11 04:34] LABS: Anion Gap 6 (5-15); Calcium 8.1 mg/dL (8.5-10.1); Carbon Dioxide 29 mmol/L (20-30)
[2023-12-11 04:39] LABS: BUN/Creatinine Ratio 35.7 (10.0-20.0); Blood Urea Nitrogen 46 mg/dL (9-23); Glucose 145 mg/dL (74-106)
[2023-12-11 04:54] LABS: INR 1.08 (0.9-1.15); Prothrombin Time 11.3 sec (9.3-11.8)
[2023-12-11 05:01] LABS: Partial Thromboplastin Time > 139.0 SEC (24.5-34.5)
[2023-12-11 06:37] LABS: Hematocrit 21.2 % (36.0-46.0); Mean Corpuscular Hemoglobin 27.8 pg (28.0-32.0); Mean Corpuscular Hgb Conc. 31.4 g/dL (32.0-36.0); Mean Corpuscular Volume 88.5 fL (80.0-100.0); Red Blood Cells 2.39 10^6/uL (4.0-5.20); Red Cell Distribution Width 13.5 % (11.8-14.3); White Blood Cell 19.8 10^3/uL (4.4-10.8)
[2023-12-11 07:02] LABS: INR 1.09 (0.9-1.15); Prothrombin Time 11.4 sec (9.3-11.8)
[2023-12-11 07:22] LABS: Hemoglobin 6.6 g/dL (12.2-16.2)
[2023-12-11 07:23] LABS: Basophils % (manual) 0 (0.0-2.0); Blast Cells 0; Eosinophils % (manual) 0 (0-7); Myelocytes % 0; Promyelocytes % 0; Reactive Lymphocytes 0
[2023-12-11] MEDS: LORazepam 2MG/ML-1ML VIAL IV ONE (07:30)
[2023-12-11 07:34] LABS: Partial Thromboplastin Time 94.2 SEC (24.5-34.5)
[2023-12-11] MEDS: ETOMIDATE (2MG/ML) 20ML VIAL IV ONE (07:51)
[2023-12-11] MEDS: SUCCINYLCHOLINE CHLORIDE 20 MG/ML 10ML VIAL IV ONE (08:00)
[2023-12-11] MEDS: PHENYLEPHRINE IV 250 ML IV SCH (08:30)
[2023-12-11] MEDS: VASOPRESSIN 20 UNITS in SODIUM CHL 0.9% 99 ML IV SCH (08:45)
[2023-12-11] MEDS: EPINEPHrine HCL 250 ML IV SCH (09:15)
[2023-12-11] MEDS: DOPamine 1600MCG/ML D5W 250 ML IV SCH (09:40)
[2023-12-11 11:47] LABS: Base Excess -17.8 mmol/L (-2.0-2.0)
[2023-12-11] MEDS: SODIUM BICARBONATE 8.4 % INJ 50ML VIAL IV ONE ×2 (12:00→23:22)
[2023-12-11] MEDS: SODIUM BICARBONATE 50ML VIAL 150 ML in D5W 5% 1,000 ML IV ONE (13:28)
[2023-12-11] MEDS: SODIUM CHLORIDE 0.9% 1,000 ML IV ONE (13:30)
[2023-12-11] MEDS: SODIUM CHLORIDE 0.9% 1,000 ML IV SCH (13:30)
[2023-12-11 14:10] LABS: Band Neutrophils % (manual) 8; Lymphocytes % (manual) 3 (10.0-50.0); Metamyelocytes % 4; Monocytes % (manual) 3 (0-12)
[2023-12-11 14:11] LABS: Platelet Estimate Adequate
[2023-12-11] MEDS: MIDAZOLAM DRIP 50 mg/50mL 50 ML IV ONE (14:34)
[2023-12-11] MEDS: PHENYLEPHRINE IV 250 ML IV ONE (14:40)
[2023-12-11] MEDS: VASOPRESSIN 20 UNIT/ML ONE (14:48)
[2023-12-11] MEDS: EPINEPHrine HCL 250 ML IV ONE (14:52)
[2023-12-11 16:48] LABS: Hemoglobin 9.2 g/dL (12.2-16.2)
[2023-12-11] MEDS: SODIUM BICARBONATE 8.4% INJ 50ML SYRINGE ONE (23:22)
[2023-12-11] MEDS: SODIUM BICARBONATE 50ML VIAL 150 ML in D5W 5% 1,000 ML IV SCH (23:22)
[2023-12-12] VITALS: PULSE 104; RESP 23; TEMP 97.7
[2023-12-12 00:26] VITALS: BP 124/29; PULSE 104; RESP 23
== END 2023-12-12 00:21 | DRG 208 ==
LOC: EDBD 09:39 → ER 09:39 → TELE 13:07 → TELE-WESTW 18:17 → DOU IN ICU 21:26 → TELE-EAST 12-02 16:44 → TELE-WESTW 12-05 18:10 → ICU WEST 12-07 14:24
PROVIDERS: ADMIT Internal Medicine; ATTEND Internal Medicine
PROC: 5A09357 Assistance with Respiratory Ventilation, Less than 24 Consecutive Hours, Continuous Positive Airway Pressure (ICD-10-PCS; 2023-11-30)
PROC: 5A09357 Assistance with Respiratory Ventilation, Less than 24 Consecutive Hours, Continuous Positive Airway Pressure (ICD-10-PCS; 2023-12-01)
PROC: 0BH17EZ Insertion of Endotracheal Airway into Trachea, Via Natural or Artificial Opening (ICD-10-PCS; 2023-12-07)
PROC: 5A09357 Assistance with Respiratory Ventilation, Less than 24 Consecutive Hours, Continuous Positive Airway Pressure (ICD-10-PCS; 2023-12-07)
PROC: 5A1945Z Respiratory Ventilation, 24-96 Consecutive Hours (ICD-10-PCS; 2023-12-10)
PROC: 02HV33Z Insertion of Infusion Device into Superior Vena Cava, Percutaneous Approach (ICD-10-PCS; principal; 2023-12-11)
PROC: 5A1935Z Respiratory Ventilation, Less than 24 Consecutive Hours (ICD-10-PCS; 2023-12-11)
PROC: 02HV33Z Insertion of Infusion Device into Superior Vena Cava, Percutaneous Approach (ICD-10-PCS; 2023-12-11)
PROC: 30233N1 Transfusion of Nonautologous Red Blood Cells into Peripheral Vein, Percutaneous Approach (ICD-10-PCS; 2023-12-11)
DX: I26.99 Other pulmonary embolism without acute cor pulmonale (principal); J96.21 Acute and chronic respiratory failure with hypoxia; J96.22 Acute and chronic respiratory failure with hypercapnia; I50.23 Acute on chronic systolic (congestive) heart failure; G93.41 Metabolic encephalopathy; A41.9 Sepsis, unspecified organism; R65.21 Severe sepsis with septic shock; E87.3 Alkalosis; R18.8 Other ascites; K92.2 Gastrointestinal hemorrhage, unspecified; N17.9 Acute kidney failure, unspecified; J44.1 Chronic obstructive pulmonary disease with (acute) exacerbation; I13.0 Hypertensive heart and chronic kidney disease with heart failure and stage 1 through stage 4 chronic kidney disease, or unspecified chronic kidney disease; R57.1 Hypovolemic shock; R31.9 Hematuria, unspecified; Z66 Do not resuscitate; Z53.20 Procedure and treatment not carried out because of patient's decision for unspecified reasons; Z20.822 Contact with and (suspected) exposure to COVID-19; J20.9 Acute bronchitis, unspecified; F41.9 Anxiety disorder, unspecified; E03.9 Hypothyroidism, unspecified; E86.0 Dehydration; I25.10 Atherosclerotic heart disease of native coronary artery without angina pectoris; I48.91 Unspecified atrial fibrillation; F10.11 Alcohol abuse, in remission; D50.0 Iron deficiency anemia secondary to blood loss (chronic); F19.11 Other psychoactive substance abuse, in remission; K59.00 Constipation, unspecified; N18.9 Chronic kidney disease, unspecified; B95.62 Methicillin resistant Staphylococcus aureus infection as the cause of diseases classified elsewhere; Z87.891 Personal history of nicotine dependence; Z91.81 History of falling
CPT/HCPCS: 36415; 36600; 70450; 71045; 71275; 74018; 76705; 76775; 80048; 80053; 80162; 80202; 80307; 81001; 82140; 82306; 82565; 82805; 83880; 83970; 84100; 84443; 84484; 85007; 85014; 85018; 85025; 85027; 85379; 85610; 85730; 86850; 86900; 86901; 86920; 87040; 87070; 87077; 87186; 87205; 87426; 87804; 93005; 93306; 93970; 94002; 94003; 94640; 94644; 94660; 97110; 97116; 97163; 97530; C9113; G0378; J0171; J0330; J2250; J2543; J2704; J7060